=== PATIENT | female | born 1940 | race Caucasian/White ===

== ENCOUNTER 2023-02-26 20:57 | Inpatient (IN) ==
[2023-02-27 10:19] LABS: Hematocrit 28.8 % (35-45); Hemoglobin 9.9 g/dL (11.5-14.3); Mean Corpuscular Hemoglobin 35.1 pg (27-33); Mean Corpuscular Hgb Conc 34.2 g/dL (31-36); Mean Corpuscular Volume 102.8 fL (80-97); Mean Platelet Volume 6.9 fL (7.5-11.2); Platelet Count 212 10^3/uL (150-450); Red Blood Count 2.81 10^6/uL (3.63-4.92); Red Cell Distribution Width 19.8 % (12-17)
[2023-02-27 10:38] LABS: Activated Partial Thrombo Time 29.6 seconds (26.0-38.0); INR 1.16 (0.88-1.18)
[2023-02-27 11:13] LABS: Macrocytosis 1+
[2023-02-27 11:14] LABS: Anisocytosis 1+; Tear Drop Cells 1+
[2023-02-27 11:15] LABS: ABS Basophils 0.1 10^3/uL (0.0-0.1); ABS Monocytes 1.2 10^3/uL (0.0-0.9); ABS Neutrophils 2.7 10^3/uL (1.5-7.6); ABS Nucleated RBC 0.01 10^3/ul; Eosinophil % 0.8 %; Lymphocyte % 19.6 %; Nucleated Red Blood Cells % 0.2 /100 WBC (0.0-0.4)
[2023-02-27 11:26] LABS: ALT 14 U/L (7-52); AST 20 U/L (13-39); Albumin 3.9 g/dL (3.2-5.2); Albumin/Globulin Ratio 2.2 (1-3); Alkaline Phosphatase 48 U/L (35-149); Anion Gap 5 mmol/L (2-16); Blood Urea Nitrogen 9 mg/dL (6-24); CO2 Carbon Dioxide 28 mmol/L (22-32); Calcium 8.4 mg/dL (8.6-10.3); Chloride 104 mmol/L (101-111); Creatinine, Serum 0.42 mg/dL (0.51-0.95); Globulin 1.8 g/dL (2-4); Glucose 89 mg/dL (70-100); Potassium 3.7 mmol/L (3.5-5.0); Sodium 137 mmol/L (135-145); Total Protein 5.7 g/dL (6.4-8.9)
[2023-02-27] MEDS ORDERED: Ondansetron 4 mg VIAL 2 MG/ML 2 ml VIAL IV ONE (11:54)
[2023-02-27 13:43] LABS: Vitamin D Total 25(OH) 36.4 ng/mL (20-50)
[2023-02-27] MEDS ORDERED: Enoxaparin 40 MG/0.4 ML SYR SUBCUT ONE (14:26)
[2023-02-27 14:52] LABS: % Iron Saturation 27 % (15-55); .Transferrin 207 mg/dL (203-362); Iron 79 ug/dL (50-212); Total Iron Binding Capacity 290 mcg/dL (250-450); Unsaturated Iron Binding 211 ug/dL
[2023-02-27] MEDS: Morphine 4 MG/ML VIAL (1 ml) IV PRN (14:59)
[2023-02-27 15:04] LABS: TSH Ultra Thyroid Stim Horm 1.41 mcIU/mL (0.34-5.60)
[2023-02-27 15:15] LABS: Folate > 20.00 ng/mL (5.90-24.80)
[2023-02-27 15:16] LABS: Vitamin B12 580 pg/mL (180-914)
[2023-02-28] MEDS: Morphine 4 MG/ML VIAL (1 ml) IV PRN ×2 (07:33→14:56)
[2023-02-28] MEDS ORDERED: fentaNYL 100 mcg/2 ml 50 MCG/ML VIAL IV PRN (10:52)
[2023-02-28] MEDS ORDERED: Naloxone 0.4 mg VIAL 0.4 mg/ml 1 ml VIAL IV PRN (10:52)
[2023-02-28] MEDS ORDERED: ceFAZolin 2 GM in NS PREMIX 2 GM/100 ML BAG IVPB ONE (10:58)
[2023-02-28] MEDS ORDERED: Midazolam 2 mg/2 ml VIAL 1 mg/ml 2 ml VIAL (2 mg) ONE (11:05)
[2023-02-28] MEDS ORDERED: fentaNYL 100 mcg/2 ml 50 MCG/ML VIAL ONE (11:18)
[2023-02-28] MEDS ORDERED: Bupivacaine 0.25% EPI 200,000 30 ML SDV ONE (12:49)
[2023-02-28] MEDS ORDERED: HYDROmorphone 1 MG/1 ML SYRINGE ONE (13:27)
[2023-02-28] MEDS: HYDROmorphone 1 MG/1 ML SYRINGE IV PRN ×2 (13:29→13:40)
[2023-02-28] MEDS: ceFAZolin 1 GM Q8H (ADVAN) IVPB SCH (20:03)
[2023-02-28] MEDS ORDERED: Lactated Ringers 1000 ml BAG 1,000 ML IV ONE (20:52)
[2023-03-01] MEDS: ceFAZolin 1 GM Q8H (ADVAN) IVPB SCH ×2 (03:14→11:27)
[2023-03-01 06:51] LABS: Hematocrit 27.7 % (35-45); Hemoglobin 9.6 g/dL (11.5-14.3); Mean Corpuscular Hgb Conc 34.6 g/dL (31-36); Mean Corpuscular Volume 104.2 fL (80-97); Mean Platelet Volume 6.9 fL (7.5-11.2); Platelet Count 208 10^3/uL (150-450); Red Blood Count 2.66 10^6/uL (3.63-4.92)
[2023-03-01 07:17] LABS: Albumin 3.6 g/dL (3.2-5.2); Albumin/Globulin Ratio 1.8 (1-3); Calcium 8.2 mg/dL (8.6-10.3); Creatinine, Serum 0.39 mg/dL (0.51-0.95); Potassium 3.9 mmol/L (3.5-5.0); Total Bilirubin 1.8 mg/dL (0.2-1.0); Total Protein 5.6 g/dL (6.4-8.9); eGFR CKD-EPI 98.7 (>60)
[2023-03-01 08:34] LABS: ABS Lymphocytes 0.9 10^3/uL (1.0-4.8); ABS Monocytes 1.3 10^3/uL (0.0-0.9); ABS Neutrophils 4.8 10^3/uL (1.5-7.6); ABS Nucleated RBC 0.01 10^3/ul; Eosinophil % 0.4 %; Nucleated Red Blood Cells % 0.1 /100 WBC (0.0-0.4)
[2023-03-01] MEDS: Enoxaparin 40 MG/0.4 ML SYR SUBCUT SCH (08:42)
[2023-03-01] MEDS ORDERED: Magnesium Hydroxide LIQ 30 ML UDC PO PRN (11:37)
[2023-03-01] MEDS: Polyethylene Glycol 3350 17 GM PACKET PO PRN (19:55)
[2023-03-01] MEDS: Senna TAB 8.6 mg TAB PO PRN (19:55)
[2023-03-02 05:52] LABS: ABS Eosinophils 0.1 10^3/uL (0.0-0.5); ABS Lymphocytes 0.9 10^3/uL (1.0-4.8); ABS Monocytes 1.4 10^3/uL (0.0-0.9); ABS Neutrophils 3.1 10^3/uL (1.5-7.6); ABS Nucleated RBC 0.02 10^3/ul; Hematocrit 25.4 % (35-45); Hemoglobin 8.9 g/dL (11.5-14.3); Mean Corpuscular Hemoglobin 36.3 pg (27-33); Mean Corpuscular Volume 103.8 fL (80-97); Mean Platelet Volume 6.8 fL (7.5-11.2); Nucleated Red Blood Cells % 0.4 /100 WBC (0.0-0.4); Platelet Count 196 10^3/uL (150-450); Red Blood Count 2.45 10^6/uL (3.63-4.92); Red Cell Distribution Width 18.4 % (12-17); White Blood Count 5.5 10^3/uL (3.8-11.8)
[2023-03-02 06:26] LABS: Calcium 8.4 mg/dL (8.6-10.3); Creatinine, Serum 0.35 mg/dL (0.51-0.95); eGFR CKD-EPI 101.4 (>60)
[2023-03-02] MEDS: Polyethylene Glycol 3350 17 GM PACKET PO PRN (10:59)
[2023-03-02] MEDS: Senna TAB 8.6 mg TAB PO PRN (11:02)
[2023-03-02] MEDS: Enoxaparin 40 MG/0.4 ML SYR SUBCUT SCH (11:04)
[2023-03-02 11:30] LABS: Magnesium 2.3 mg/dL (1.9-2.7)
[2023-03-02] MEDS ORDERED: Lactated Ringers 1000 ml BAG 1,000 ML IV ONE (13:12)
[2023-03-03 06:20] LABS: ABS Eosinophils 0.1 10^3/uL (0.0-0.5); ABS Neutrophils 2.3 10^3/uL (1.5-7.6); ABS Nucleated RBC 0.02 10^3/ul; Eosinophil % 1.5 %; Hematocrit 23.3 % (35-45); Lymphocyte % 21.7 %; Mean Corpuscular Hemoglobin 36.2 pg (27-33); Mean Corpuscular Hgb Conc 34.5 g/dL (31-36); Mean Platelet Volume 7.2 fL (7.5-11.2); Nucleated Red Blood Cells % 0.5 /100 WBC (0.0-0.4); Platelet Count 206 10^3/uL (150-450); Red Blood Count 2.22 10^6/uL (3.63-4.92); Red Cell Distribution Width 18.7 % (12-17); White Blood Count 4.5 10^3/uL (3.8-11.8)
[2023-03-03] MEDS: Enoxaparin 40 MG/0.4 ML SYR SUBCUT SCH (08:20)
[2023-03-03 10:29] VITALS: BP 120/60
== END 2023-03-03 11:00 | disposition home or self-care (01) | DRG 482 ==
LOC: ED 20:57 → SUATTDRO 02-27 12:18 → EDHOLD 02-27 12:18 → SSU 02-27 18:15
PROVIDERS: ADMIT Internal Medicine; ATTEND Internal Medicine